=== PATIENT | male | born 1965 | race Caucasian/White ===

== ENCOUNTER 2024-09-07 06:46 | Day surgery (SDC) | payer OTHER ==
[2024-09-07] VITALS (11 sets, daily range): BP systolic 114–135; BP diastolic 73–86; PULSE 47–62; RESP 15–18; TEMP 97.3–97.6
[~2024-09-07] VITALS: Ht 175.3 cm; Wt 88.5 kg
[~2024-09-07 06:46] MED LIST: RIVA20TA PO; SIMV-46 PO
[2024-09-07] MEDS: 0.9%NACL 1000ML 1,000 ML IV ONE (07:22)
== END 2024-09-07 11:00 | disposition home or self-care (01) ==
LOC: ENDO 06:46 → DAH 06:46 → ENDO 11:00
PROVIDERS: ATTEND Internal Medicine Gastroenterology
DX: R13.10 Dysphagia, unspecified (principal); K31.89 Other diseases of stomach and duodenum; K20.0 Eosinophilic esophagitis; K22.2 Esophageal obstruction; K29.70 Gastritis, unspecified, without bleeding; E78.2 Mixed hyperlipidemia; G47.30 Sleep apnea, unspecified; Z79.01 Long term (current) use of anticoagulants; Z79.899 Other long term (current) drug therapy
CPT/HCPCS: 43239; 43248; J7030 ×2; J2704; A4620; A4215; A4223; A7002; A4222; A4221; A4663; A4606; J3490